=== PATIENT | male | born 1975 | race African-American/Black ===

== ENCOUNTER 2023-11-04 14:16 | Outpatient (CLI) | payer OTHER | END 2023-11-04 14:17 | disposition home or self-care (01) | LOC: NAV RAD 14:16 | PROVIDERS: ATTEND Family Medicine | DX: I50.22 Chronic systolic (congestive) heart failure (principal); J45.40 Moderate persistent asthma, uncomplicated; I51.7 Cardiomegaly | CPT/HCPCS: 71046 ==